=== PATIENT | male | born 1940 | race Caucasian/White ===

== ENCOUNTER 2020-08-13 21:34 | Emergency (ER) | payer MEDICARE, OTHER ==
[~2020-08-13] VITALS: Ht 193 cm; Wt 109.0 kg
--- NOTE | 2020-08-13 21:49 | ED Cardiac General ---
History of Present Illness General Chief Complaint: Cardiac/General Problems Stated Complaint: HIGH BP Source: patient Exam Limitations: no limitations History of Present Illness Date Seen by Provider: Aug 13, 2020 Time Seen by Provider: 21:47 Initial Comments To ER with reports of high blood pressure. He has no symptoms other than a mild headache. No nausea no vomiting no chest pain no short of breath. States that he was instructed to take his blood pressure 3 times a day at home. He did this and noted to be elevated this evening. Timing/Duration: changing over time Severity: moderate NTG SL WARDROBE MANAGER: No ASA po WARDROBE MANAGER: No Associated Systoms: Headaches Allergies and Home Medications Allergies Coded Allergies: No Known Drug Allergies (Unverified , 08/13/20) Patient Home Medication List Home Medication List Reviewed: Yes Review of Systems Review of Systems Constitutional: see HPI; No chills, No fever EENTM: No Symptoms Reported Respiratory: No Symptoms Reported Cardiovascular: No Symptoms Reported; Denies Chest Pain Gastrointestinal: No Symptoms Reported Genitourinary: No Symptoms Reported Musculoskeletal: no symptoms reported Skin: no symptoms reported Psychiatric/Neurological: No Symptoms Reported Past [place]-Ddd[place]n-Dtlgkg Hx Patient Social History Recent Foreign Travel: No Contact w/Someone Who Travel: No Physical Exam Vital Signs Capillary Refill : Height, Weight, BMI Height: '" Weight: lbs. oz. kg; BMI Method: General Appearance: No Apparent Distress, WD/WN, Anxious, Other (199/121) HEENT: PERRL/EOMI, TMs Normal Respiratory: Lungs Clear, Normal Breath Sounds, No Accessory Muscle Use, No Respiratory Distress Cardiovascular: Regular Rate, Rhythm, Normal Peripheral Pulses Gastrointestinal: Non Tender, Soft Extremity: Normal Capillary Refill, Normal Inspection Neurologic/Psychiatric: Alert, Oriented x3 Skin: Normal Color, Warm/Dry Progress/Results/Core Measures Results/Orders My Orders Orders - CAROL[place] ANNA APRN Clonidine Tablet (Catapres Tablet) (08/13/20 22:00) Medications Given in ED Current Medications Medications Dose Ordered Sig/Flor Route Start Time Stop Time Status Last Admin Dose Admin Clonidine HCl 0.2 mg ONCE ONCE PO 08/13/20 22:00 08/13/20 22:01 08/13/20 21:49 0.2 MG Departure Communication (Admissions) States that he just had labs drawn on Monday of this week and states that they were all normal. Impression Primary Impression: Hypertension Qualified Codes: I10 - Essential (primary) hypertension Disposition: 01 HOME, SELF-CARE Condition: Stable Departure-Patient Inst. Decision time for Depature: 21:51 Patient Instructions: High Blood Pressure in Adults Add. Discharge Instructions: 1. Call Dr. De Jesus tomorrow to make an appointment to be seen for follow-up. Return to ER for any concerns. All discharge instructions reviewed with patient and/or family. Voiced understanding. CAROL[place] ANNA LEADERSHIP PROGRAM INTERN Aug 13, 2020 21:49
[2020-08-13] MEDS ORDERED: cloNIDine 0.1 MG (CATAPRES) TAB PO ONE ×2 (22:00)
[2020-08-13 22:41] VITALS: BP 167/106
[2020-08-13] MEDS ORDERED: meTOproloL SUCCINATE 50 MG (TOPROL XL) TAB PO SCH (22:45)
== END 2020-08-13 22:44 | disposition home or self-care (01) ==
LOC: ER 21:36
DX: I10 Essential (primary) hypertension (principal)
CPT/HCPCS: 99283

== ENCOUNTER 2021-07-15 10:52 | Outpatient (CLI) | payer MEDICARE, OTHER ==
[~2021-07-15] VITALS: Ht 193 cm; Wt 109.0 kg
[2021-07-16] MEDS ORDERED: AMLO-250 PO (14:21)
[2021-07-16] MEDS ORDERED: MTP100TCR PO (14:22)
[2021-07-16] MEDS ORDERED: METF-478 PO (14:22)
== END 2021-07-16 14:59 | disposition home or self-care (01) ==
LOC: PREOP 10:52
PROVIDERS: ATTEND Surgery
DX: Z01.818 Encounter for other preprocedural examination (principal)

== ENCOUNTER 2021-07-21 11:27 | Day surgery (SDC) | payer MEDICARE, OTHER ==
[~2021-07-21] VITALS: Ht 193 cm; Wt 112.3 kg
[~2021-07-21 11:27] MED LIST: AMLO-250 PO; METF-478 PO; MTP100TCR PO
[2021-07-21] MEDS ORDERED: LACTATED RINGERS 1,000 ML IV STA (11:38)
[2021-07-21] MEDS ORDERED: LACTATED RINGERS 1,000 ML IV ONE (11:41)
[2021-07-21] MEDS ORDERED: LIDOCAINE JELLY 2% 6 ML SYRINGE MM PRN (11:45)
--- NOTE | 2021-07-21 11:48 | Progress Note-Pre Operative ---
Pre-Operative Progress Note H&P Reviewed The H&P was reviewed, patient examined and no changes noted. Date Seen by Provider: Jul 21, 2021 Time Seen by Provider: 11:45 Date H&P Reviewed: Jul 21, 2021 Time H&P Reviewed: 11:45 Pre-Operative Diagnosis: screening, hx colo polyp LEBRON OLSON MD Jul 21, 2021 11:48
--- NOTE | 2021-07-21 11:49 | Discharge Inst-Surgical ---
D/C Lap Instructions-[facility] Follow Up Appt in 2 weeks Activity as tolerated High Fiber Diet 25g or more per day Avoid Alcohol, Caffeine, Spicy [place] and Acid foods. Drink 64 fluid oz or more of fluids per day. Symptoms to Report: Fever over 101 degree F, Nausea/Vomiting If any problems/questions: Contact your physician or go to Emergency Room LEBRON OLSON MD Jul 21, 2021 11:49
[2021-07-21] MEDS ORDERED: ONDANSETRON 4 MG/2 ML (SDV) Z0FRAN IVP PRN (12:00)
[2021-07-21] MEDS ORDERED: ONDANSETRON 4 MG (ZOFRAN) ORAL DISSOLVE TAB PO PRN (12:00)
[2021-07-21 12:02] VITALS: BP 170/94
[2021-07-21] MEDS ORDERED: PROPOFOL INJECTION 50 ML IV ONE (14:07)
[2021-07-21 14:40] VITALS: BP 182/89
[2021-07-21 14:48] VITALS: BP 182/89
--- NOTE | 2021-07-21 14:53 | Progress Note-Post Operative ---
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 Procedure & Operative Findings Date of Procedure 07/21/21 Procedure Performed/Findings colonoscopy Anesthesia Type mac Estimated Blood Loss Estimated blood loss (mL): minimal Specimens/Packing Specimens Removed none LEBRON OLSON MD Jul 21, 2021 14:53
[2021-07-21 15:40] VITALS: BP 188/95
[2021-07-21 15:43] VITALS: BP 188/95
== END 2021-07-21 15:43 | disposition home or self-care (01) ==
LOC: ENDO 11:27
PROVIDERS: ATTEND Surgery
DX: Z12.11 Encounter for screening for malignant neoplasm of colon (principal); K57.30 Diverticulosis of large intestine without perforation or abscess without bleeding; K64.1 Second degree hemorrhoids; I10 Essential (primary) hypertension; G47.33 Obstructive sleep apnea (adult) (pediatric); E11.9 Type 2 diabetes mellitus without complications; Z86.010 Personal history of colon polyps; Z79.899 Other long term (current) drug therapy; Z79.84 Long term (current) use of oral hypoglycemic drugs; Z80.3 Family history of malignant neoplasm of breast; Z80.8 Family history of malignant neoplasm of other organs or systems